=== PATIENT | female | born 1990 | race African-American/Black ===

== ENCOUNTER 2018-08-17 01:29 | Emergency (ER) | payer MEDICAID ==
[~2018-08-17] VITALS: Ht 177.8 cm; Wt 90.9 kg
[~2018-08-17 01:29] MED LIST: IBUPROFEN600 MG PO; PERCOCET 5-3251 TAB PO
[2018-08-17 01:33] VITALS: Ht 177.8 cm; Wt 90.9 kg
[2018-08-17] MEDS ORDERED: BUSPAR 15 MG TA15 MG (01:36)
[2018-08-17] MEDS ORDERED: ATIVAN1 MG PO (02:02)
[2018-08-17 02:41] VITALS: BP 121/85
== END 2018-08-17 02:43 | disposition home or self-care (01) ==
LOC: D.ER 01:29
DX: R00.2 Palpitations (principal); F41.9 Anxiety disorder, unspecified

== ENCOUNTER 2020-01-06 08:53 | Emergency (ER) | payer MEDICAID ==
[~2020-01-06] VITALS: Ht 177.8 cm; Wt 81.8 kg
[~2020-01-06 08:53] MED LIST changes: +ATIVAN1 MG PO; +BUSPAR 15 MG TA15 MG
[2020-01-06 09:05] VITALS: BP 138/93; Ht 177.8 cm; Wt 81.8 kg
[2020-01-06] MEDS ORDERED: ZOLOFT50 MG PO (09:06)
[2020-01-06] MEDS ORDERED: [UNRECOGNIZED DRUG - CODE] PO (10:05)
== END 2020-01-06 10:17 | disposition home or self-care (01) ==
LOC: D.ER 08:53
DX: R09.89 Other specified symptoms and signs involving the circulatory and respiratory systems (principal); S10.11XA Abrasion of throat, initial encounter; R07.0 Pain in throat; X58.XXXA Exposure to other specified factors, initial encounter